=== PATIENT | female | born 1970 | race Caucasian/White ===

== ENCOUNTER 2016-10-16 19:50 | Emergency (ER) | payer OTHER ==
[~2016-10-16 19:50] MED LIST: ASPIRIN CHEWABL81 MG PO; CRESTOR10 MG PO; CRESTOR40 MG PO; HABITROL 21 MG P1 EA TD; IMDUR ER TAB 3030 MG PO; LANTUS100 UNIT/1 SQ; LISINOPRIL5 MG PO; LYRICA150 MG PO; METOPROLOL TART25 MG PO; NITROSTAT 0.40.4 MG SL; NOVOLOG 10100 UNITS/ INJ; TYLENOL 325MG325 MG PO; TYLENOL 650 MG650 MG PR
== END 2016-10-16 21:03 | disposition home or self-care (01) ==
LOC: ER1 19:50
DX: L50.9 Urticaria, unspecified (principal); I10 Essential (primary) hypertension; E78.5 Hyperlipidemia, unspecified; E11.9 Type 2 diabetes mellitus without complications; Z87.891 Personal history of nicotine dependence; Z79.4 Long term (current) use of insulin; Z79.899 Other long term (current) drug therapy
CPT/HCPCS: 96372; 99282; J1200

== ENCOUNTER 2016-12-15 22:47 | Emergency (ER) | payer OTHER | END 2016-12-16 01:20 | disposition home or self-care (01) | LOC: ER1 22:47 | DX: H66.91 Otitis media, unspecified, right ear (principal); I10 Essential (primary) hypertension | CPT/HCPCS: 99282 ==

== ENCOUNTER 2016-12-30 21:21 | Emergency (ER) | payer OTHER | END 2016-12-31 00:50 | disposition left against medical advice (07) | LOC: ER1 21:21 | DX: Z53.21 Procedure and treatment not carried out due to patient leaving prior to being seen by health care provider (principal) ==

== ENCOUNTER → 2017-01-04 | Outpatient (CLI) | payer OTHER | LOC: KOH-I 10:42 | DX: R10.84 Generalized abdominal pain (principal) | CPT/HCPCS: 74020 ==

== ENCOUNTER → 2021-02-15 | Outpatient (CLI) | payer OTHER ==
[~2021-02-15] MED LIST changes: +AJOVY AUTO225 MG/1.5 SQ; +ASPIRIN EC81 MG PO; +ATORVASTATIN CA20 MG PO; +CLARITIN10 MG PO; +FAMOTIDINE20 MG PO; +HUMALOG100 UNIT/3 SC; +HUMULIN R100 UNIT/1 SQ; +IMDUR ER TAB 6060 MG PO; +ISOSORBIDE MONO30 MG PO; +LANTUS SOL100 UNIT/1 SQ; +LEVOTHYROXINE50 MCG PO; +LISINOPRIL2.5 MG PO; +LISINOPRIL20 MG PO; +LODINE CAP 300300 MG PO; +METOPROLOL ER PO; +MOBIC15 MG PO; +NAPROXEN500 MG PO; +NORFLEX 100 MG100 MG PO; +OZEMPIC SQ; +PREGABALIN200 MG PO; +PROTONIX40 MG PO; +STEGLATRO15 MG PO; +TRAMADOL HCL50 MG PO; +UBRELVY100 MG PO; +VITAMIN D31250 MCG PO; +ZOLOFT25 MG PO
== END ==
LOC: MAMO 11:25
DX: Z12.31 Encounter for screening mammogram for malignant neoplasm of breast (principal)
CPT/HCPCS: 77063; 77067

== ENCOUNTER → 2021-03-10 | Day surgery (SDC) | payer OTHER ==
[~2021-03-10] VITALS: Ht 165.1 cm; Wt 104.3 kg
== END | disposition home or self-care (01) ==
LOC: OR 07:26
DX: R19.5 Other fecal abnormalities (principal); I11.0 Hypertensive heart disease with heart failure; E66.9 Obesity, unspecified; G47.30 Sleep apnea, unspecified; E78.5 Hyperlipidemia, unspecified; E03.9 Hypothyroidism, unspecified; G43.109 Migraine with aura, not intractable, without status migrainosus; E11.42 Type 2 diabetes mellitus with diabetic polyneuropathy; I50.32 Chronic diastolic (congestive) heart failure; E55.9 Vitamin D deficiency, unspecified; Z79.4 Long term (current) use of insulin; Z87.891 Personal history of nicotine dependence; Z20.822 Contact with and (suspected) exposure to COVID-19
CPT/HCPCS: 82962; 84703; J2704; J7030

== ENCOUNTER 2021-06-12 15:27 | Emergency (ER) | payer OTHER ==
[2021-06-12 17:35] LABS: HEMOGLOBIN 15.4 gm/dl (12.3-15.3); RED BLOOD COUNT 5.05 M/UL (4.00-5.10); WHITE BLOOD COUNT 7.4 K/UL (4.5-11.0)
[2021-06-12 17:52] LABS: BUN/CREATININE RATIO 28 (0-10)
[2021-06-12] MEDS ORDERED: MOBIC15 MG PO (20:49)
[2021-06-12] MEDS ORDERED: ONDANSETRON ODT4 MG SL (20:49)
== END 2021-06-12 20:50 | disposition home or self-care (01) ==
LOC: ER1 15:27
PROVIDERS: Physician Assistant
DX: K76.0 Fatty (change of) liver, not elsewhere classified (principal); E11.9 Type 2 diabetes mellitus without complications; E78.5 Hyperlipidemia, unspecified; Z79.4 Long term (current) use of insulin
CPT/HCPCS: 80053; 81001; 85025; 96374; 96375; 99284; J1885; J2405; Q9967

== ENCOUNTER → 2021-08-31 | Outpatient (CLI) | payer OTHER ==
[~2021-08-31] MED LIST changes: +ONDANSETRON ODT4 MG SL
== END ==
LOC: KOH-I 10:57
DX: M47.27 Other spondylosis with radiculopathy, lumbosacral region (principal); R07.9 Chest pain, unspecified; E78.5 Hyperlipidemia, unspecified; K21.9 Gastro-esophageal reflux disease without esophagitis; E11.9 Type 2 diabetes mellitus without complications; I10 Essential (primary) hypertension
CPT/HCPCS: 72100; 73502

== ENCOUNTER → 2021-09-04 | Outpatient (CLI) | payer OTHER | LOC: US 09-01 08:00 | DX: K21.9 Gastro-esophageal reflux disease without esophagitis (principal); M54.17 Radiculopathy, lumbosacral region; R07.9 Chest pain, unspecified; E78.5 Hyperlipidemia, unspecified; E11.9 Type 2 diabetes mellitus without complications; I10 Essential (primary) hypertension; K76.0 Fatty (change of) liver, not elsewhere classified | CPT/HCPCS: 76705 ==

== ENCOUNTER 2021-09-22 10:24 | Emergency (ER) | payer OTHER ==
[~2021-09-22] VITALS: Ht 167.6 cm; Wt 100.7 kg
[2021-09-22 11:31] LABS: HEMOGLOBIN 13.5 gm/dl (12.3-15.3); RED BLOOD COUNT 4.7 M/UL (4.00-5.10); WHITE BLOOD COUNT 6.1 K/UL (4.5-11.0)
[2021-09-22 11:51] LABS: BUN/CREATININE RATIO 31 (0-10)
== END 2021-09-22 20:15 | disposition short-term general hospital (02) ==
LOC: ER1 10:24
PROVIDERS: Physician Assistant
DX: R07.9 Chest pain, unspecified (principal); E11.9 Type 2 diabetes mellitus without complications; E78.5 Hyperlipidemia, unspecified; I10 Essential (primary) hypertension; Z79.899 Other long term (current) drug therapy
CPT/HCPCS: ECHO; 71045; 80053; 82550; 82553; 84484; 85025; 93005; 93306; 99285; U0002

== ENCOUNTER 2021-10-09 21:33 | Emergency (ER) | payer OTHER ==
[2021-10-09 22:11] LABS: HEMOGLOBIN 11.8 gm/dl (12.3-15.3); RED BLOOD COUNT 4.09 M/UL (4.00-5.10)
[2021-10-09 22:35] LABS: BUN/CREATININE RATIO 23 (0-10)
== END 2021-10-10 01:28 | disposition home or self-care (01) ==
LOC: ER1 21:33
PROVIDERS: Family Medicine
DX: R07.9 Chest pain, unspecified (principal); E11.65 Type 2 diabetes mellitus with hyperglycemia; E11.40 Type 2 diabetes mellitus with diabetic neuropathy, unspecified; E78.5 Hyperlipidemia, unspecified; I11.9 Hypertensive heart disease without heart failure; Z87.891 Personal history of nicotine dependence; Z79.4 Long term (current) use of insulin; Z79.82 Long term (current) use of aspirin; Z79.02 Long term (current) use of antithrombotics/antiplatelets; Z95.1 Presence of aortocoronary bypass graft
CPT/HCPCS: 71045; 80048; 82550; 82553; 82962; 83605; 83880; 84484; 85025; 85610; 93005; 96374; 99285

== ENCOUNTER → 2021-10-30 | Outpatient (CLI) | payer OTHER | LOC: WCC 07:15 | DX: T81.89XA Other complications of procedures, not elsewhere classified, initial encounter (principal); E11.628 Type 2 diabetes mellitus with other skin complications; E11.65 Type 2 diabetes mellitus with hyperglycemia; E66.01 Morbid (severe) obesity due to excess calories; I25.10 Atherosclerotic heart disease of native coronary artery without angina pectoris; I11.0 Hypertensive heart disease with heart failure; I50.9 Heart failure, unspecified; Z79.4 Long term (current) use of insulin; G47.30 Sleep apnea, unspecified; Z87.891 Personal history of nicotine dependence; Z68.38 Body mass index [BMI] 38.0-38.9, adult ==

== ENCOUNTER → 2021-11-06 | Outpatient (CLI) | payer OTHER | END | disposition home or self-care (01) | LOC: WCC 08:43 | DX: T81.32XA Disruption of internal operation (surgical) wound, not elsewhere classified, initial encounter (principal); I25.10 Atherosclerotic heart disease of native coronary artery without angina pectoris; I11.0 Hypertensive heart disease with heart failure; I50.9 Heart failure, unspecified; E11.628 Type 2 diabetes mellitus with other skin complications; E11.65 Type 2 diabetes mellitus with hyperglycemia; G47.30 Sleep apnea, unspecified; E66.01 Morbid (severe) obesity due to excess calories; Z95.1 Presence of aortocoronary bypass graft; Z79.4 Long term (current) use of insulin; Z79.899 Other long term (current) drug therapy; Z68.38 Body mass index [BMI] 38.0-38.9, adult ==

== ENCOUNTER → 2021-11-13 | Outpatient (CLI) | payer OTHER | END | disposition home or self-care (01) | LOC: WCC 07:59 | DX: T81.32XA Disruption of internal operation (surgical) wound, not elsewhere classified, initial encounter (principal); I11.0 Hypertensive heart disease with heart failure; I50.9 Heart failure, unspecified; I25.10 Atherosclerotic heart disease of native coronary artery without angina pectoris; E11.628 Type 2 diabetes mellitus with other skin complications; E11.65 Type 2 diabetes mellitus with hyperglycemia; G47.30 Sleep apnea, unspecified; E66.01 Morbid (severe) obesity due to excess calories; Z95.1 Presence of aortocoronary bypass graft; Z68.38 Body mass index [BMI] 38.0-38.9, adult; Z79.4 Long term (current) use of insulin; Z79.899 Other long term (current) drug therapy ==

== ENCOUNTER → 2021-11-20 | Outpatient (CLI) | payer OTHER | LOC: WCC 08:17 | DX: T81.9XXA Unspecified complication of procedure, initial encounter (principal); E11.628 Type 2 diabetes mellitus with other skin complications; E11.65 Type 2 diabetes mellitus with hyperglycemia; I25.10 Atherosclerotic heart disease of native coronary artery without angina pectoris; I11.0 Hypertensive heart disease with heart failure; I50.9 Heart failure, unspecified; Z79.4 Long term (current) use of insulin; G47.30 Sleep apnea, unspecified; E66.01 Morbid (severe) obesity due to excess calories; Z68.38 Body mass index [BMI] 38.0-38.9, adult; Z79.899 Other long term (current) drug therapy ==

== ENCOUNTER → 2021-11-27 | Outpatient (CLI) | payer OTHER | LOC: WCC 09:09 | DX: T81.89XD Other complications of procedures, not elsewhere classified, subsequent encounter (principal); I11.9 Hypertensive heart disease without heart failure; I50.9 Heart failure, unspecified; G47.30 Sleep apnea, unspecified; E11.65 Type 2 diabetes mellitus with hyperglycemia; E11.628 Type 2 diabetes mellitus with other skin complications; I25.10 Atherosclerotic heart disease of native coronary artery without angina pectoris; E66.01 Morbid (severe) obesity due to excess calories; Z79.4 Long term (current) use of insulin | CPT/HCPCS: G0463 ==

== ENCOUNTER → 2022-02-06 | Outpatient (CLI) | payer OTHER | LOC: KOH-I 14:10 | DX: M54.17 Radiculopathy, lumbosacral region (principal); R07.9 Chest pain, unspecified; E78.5 Hyperlipidemia, unspecified; I25.10 Atherosclerotic heart disease of native coronary artery without angina pectoris; K21.9 Gastro-esophageal reflux disease without esophagitis; E11.9 Type 2 diabetes mellitus without complications; I10 Essential (primary) hypertension; G62.9 Polyneuropathy, unspecified | CPT/HCPCS: 93922; 93925 ==

== ENCOUNTER 2022-03-14 13:04 | Observation (INO) | payer OTHER ==
[~2022-03-14] VITALS: Ht 165.1 cm; Wt 112.9 kg
[2022-03-14 13:30] LABS: HEMOGLOBIN 13.2 gm/dl (12.3-15.3); RED BLOOD COUNT 4.56 M/UL (4.00-5.10); WHITE BLOOD COUNT 6.4 K/UL (4.5-11.0)
[2022-03-14 13:51] LABS: BUN/CREATININE RATIO 23 (0-10)
[2022-03-14] MEDS ORDERED: TRESIBA FL100 UNIT/1 SQ (16:18)
[2022-03-14] MEDS ORDERED: CLOPIDOGREL75 MG PO (16:21)
[2022-03-14] MEDS ORDERED: GABAPENTIN800 MG PO (16:22)
[2022-03-14] MEDS ORDERED: FUROSEMIDE40 MG PO (16:23)
[2022-03-14] MEDS ORDERED: METOPROLOL TART25 MG PO (16:25)
[2022-03-14] MEDS ORDERED: POTASSIUM CHLO20 ME2 PO (16:25)
[2022-03-14] MEDS ORDERED: CRESTOR40 MG PO (16:26)
[2022-03-14] MEDS ORDERED: LOSARTAN POTASS25 MG PO (16:33)
[2022-03-14] MEDS ORDERED: BUMETANIDE1 MG PO (16:34)
[2022-03-14] MEDS ORDERED: ASPIRIN EC81 MG PO (16:35)
[2022-03-15 01:37] LABS: HEMOGLOBIN 13.4 gm/dl (12.3-15.3); RED BLOOD COUNT 4.59 M/UL (4.00-5.10); WHITE BLOOD COUNT 6.5 K/UL (4.5-11.0)
[2022-03-15 02:31] LABS: BUN/CREATININE RATIO 31 (0-10)
[2022-03-15] MEDS ORDERED: RANEXA500 MG PO (09:29)
== END 2022-03-15 15:10 | disposition home or self-care (01) ==
LOC: ER1 13:04 → CDU 15:56 → M/S 19:45
PROVIDERS: Physician Assistant; ADMIT Internal Medicine Infectious Disease
DX: I25.118 Atherosclerotic heart disease of native coronary artery with other forms of angina pectoris (principal); I11.0 Hypertensive heart disease with heart failure; I50.22 Chronic systolic (congestive) heart failure; I25.5 Ischemic cardiomyopathy; R79.89 Other specified abnormal findings of blood chemistry; E11.9 Type 2 diabetes mellitus without complications; E78.5 Hyperlipidemia, unspecified; E66.01 Morbid (severe) obesity due to excess calories; Z95.1 Presence of aortocoronary bypass graft; Z95.5 Presence of coronary angioplasty implant and graft; Z87.891 Personal history of nicotine dependence; Z79.82 Long term (current) use of aspirin; Z79.02 Long term (current) use of antithrombotics/antiplatelets; Z79.4 Long term (current) use of insulin; Z79.899 Other long term (current) drug therapy
CPT/HCPCS: 36415; 71045; 80048; 80053; 82550; 82553; 82962; 83880; 84484; 85025; 93005; 96374; 99285; G0378

== ENCOUNTER → 2022-04-12 | Outpatient (CLI) | payer OTHER ==
[~2022-04-12] MED LIST changes: +BUMETANIDE1 MG PO; +CLOPIDOGREL75 MG PO; +FUROSEMIDE40 MG PO; +GABAPENTIN800 MG PO; +LOSARTAN POTASS25 MG PO; +POTASSIUM CHLO20 ME2 PO; +RANEXA500 MG PO; +TRESIBA FL100 UNIT/1 SQ
== END ==
LOC: KOH-I 12:35
DX: M54.50 Low back pain, unspecified (principal); M16.11 Unilateral primary osteoarthritis, right hip; M47.814 Spondylosis without myelopathy or radiculopathy, thoracic region
CPT/HCPCS: 72070; 72100; 73502